=== PATIENT | female | born 1990 | race Asian ===

== ENCOUNTER 2017-02-08 08:54 | Emergency (ER) | payer OTHER ==
[~2017-02-08] VITALS: Ht 157.5 cm; Wt 74.4 kg
[2017-02-08 09:52] LABS: BASOPHIL % 0.5 % (0-2); PLATELET COUNT 311 x10^3mcL (130-400); RED CELL DISTRIBUTION WIDTH 13.1 % (11.5-14.5)
[2017-02-08 10:00] LABS: CALCIUM 8.5 mg/dL (8.5-10.1); CARBON DIOXIDE 29.1 mmol/L (21-32); CHLORIDE SERUM 101 mmol/L (98-107); CREATININE SERUM 0.7 mg/dL (0.6-1.0); GFR1 > 60 mL/min; GLUCOSE SERUM 102 mg/dL (74-106); SODIUM SERUM 138 mmol/L (136-145)
[2017-02-08 10:04] LABS: ALKALINE PHOSPHATASE 52 U/L (46-116); ALT/SGPT 42 U/L (14-59); AMYLASE 114 U/L (25-115); AST/SGOT 19 U/L (15-37); BILIRUBIN TOTAL 0.37 mg/dL (0.20-1.00); HDL CHOLESTEROL 38 mg/dL (40-60); LIPASE 187 IU/L (73-393); TOTAL PROTEIN, SERUM 7.8 g/dL (6.4-8.2)
[2017-02-08 10:05] LABS: CHOLESTEROL 222 mg/dL (<200)
[2017-02-08 11:02] LABS: microscopic required? YES; urine erythrocyte 2+ (NEGATIVE)
[2017-02-08 12:38] VITALS: BP 130/84
== END 2017-02-08 12:38 | disposition home or self-care (01) ==
LOC: ED 08:54
PROVIDERS: Emergency Medicine
DX: N39.0 Urinary tract infection, site not specified (principal); E78.00 Pure hypercholesterolemia, unspecified; K76.0 Fatty (change of) liver, not elsewhere classified
CPT/HCPCS: 83880; J1885; J2405; J7030; Q0092